=== PATIENT | male | born 1960 | race Hispanic/Latino ===

== ENCOUNTER 2018-04-13 08:36 | Emergency (ER) | payer OTHER ==
[~2018-04-13] VITALS: Ht 170.2 cm; Wt 103.4 kg
--- NOTE | 2018-04-13 10:05 | Diagnostic Imaging Report ---
Examination: CT head without contrast Clinical Indication: New onset severe frontal headaches. Retro-orbital pain. Technique: Transaxial noncontrast images from the skull base through the vertex were obtained. Sagittal and coronal reformatted images were done. Dose modulation, iterative reconstruction, and/or weight based adjustment of the mA/kV was utilized to reduce the radiation dose to as low as reasonably achievable. Comparison: None. Findings: There is significant motion artifact on the scan. Scalp: No abnormalities. Bones: Intact. No fractures. No blastic or lytic lesions. Brain sulci: Appropriate for patient's age. Ventricles: Normal in size and configuration. No hydrocephalus. Extra-axial space: No large hemorrhage.. Parenchyma: There is a 3 mm hypodense rounded lesion in the left superior frontal gyrus white matter which could represent a dilated perivascular space or chronic lacunar infarct. No large masses, large hemorrhage, or large acute or chronic cortical based vascular insults. Suprasellar region: No abnormalities. Craniocervical junction: The foramen magnum is patent. No Chiari one malformation. Impression: 1. Despite limitation, no large intraparenchymal or extra-axial hemorrhage or large acute territorial infarct. 2. Small chronic lacunar infarct versus dilated perivascular space in the white matter of the left superior frontal gyrus. Signed by: Dr. Nohemi Jacobo M.D. on 04/13/2018 10:02 AM
== END 2018-04-13 12:10 | disposition home or self-care (01) ==
LOC: ER 08:36
DX: J01.00 Acute maxillary sinusitis, unspecified (principal); R51 Headache
CPT/HCPCS: 70450; 99284